=== PATIENT | male | born 1945 | race Caucasian/White ===

== ENCOUNTER 2021-04-28 07:20 | Day surgery (SDC) | payer OTHER, SELFPAY ==
[~2021-04-28] VITALS: Ht 167.6 cm; Wt 68.9 kg
[~2021-04-28 07:20] MED LIST: CEFAZOLIN SOD 2 GM in D5W 50 ML IV ONE
[2021-04-28] MEDS ORDERED: METOCLOPRAMIDE HCL 10 MG/2 ML VIAL IVP ONE (09:26)
[2021-04-28] MEDS ORDERED: fentaNYL CITRATE/PF 100 MCG/2 ML AMP IVP ONE (09:26)
[2021-04-28] MEDS ORDERED: LR 1,000 ML IV.SOLN IV ONE (09:26)
[2021-04-28] MEDS ORDERED: DEXAMETHASONE SOD PHOSPHATE 4 MG/ML VIAL IVP ONE (09:26)
[2021-04-28] MEDS ORDERED: KETOROLAC TROMETHAMINE 30 MG VIAL IVP ONE (09:26)
[2021-04-28] MEDS ORDERED: SEVOFLURANE 15 MIN GAS INH ONE (09:26)
[2021-04-28] MEDS ORDERED: MIDAZOLAM HCL 5 MG/5 ML VIAL IVP ONE (09:26)
[2021-04-28] MEDS ORDERED: BUPIVACAINE /PF 0.25% 30 ML VIAL INJ ONE (09:26)
[2021-04-28] MEDS ORDERED: PROPOFOL 200MG/ 20ML VIAL (DIPRIVAN) IV ONE (09:26)
[2021-04-28] MEDS ORDERED: ePHEDrine sulfate 50 MG/ML VIAL IVP ONE (09:26)
[2021-04-28] MEDS ORDERED: POLYMYXIN 500,000/BACIT.10,000 UNITS in NS IRR 1 L IR ONE (09:54)
[2021-04-28] MEDS ORDERED: BUPIVACAINE LIPOSOME/PF 266 MG/20 ML VIAL INFIL ONE (09:54)
[2021-04-28] MEDS ORDERED: ACETAMINOPHEN I.V. 1000 MG 100 ML IV ONE (09:54)
[2021-04-28] MEDS ORDERED: HYDROmorphone 1 MG/ML INJ. CARTRIDGE IVP PRN (10:15)
[2021-04-28] MEDS ORDERED: HYDROmorphone 2 MG/ML VIAL IVP PRN (10:15)
[2021-04-28] MEDS ORDERED: MEPERIDINE HCL/PF 25 MG/ML DISP.SYRIN IVP PRN (10:15)
[2021-04-28] MEDS ORDERED: LR 1,000 ML IV SCH (10:15)
[2021-04-28 12:29] VITALS: BP_SYST 132
== END 2021-04-28 13:40 | disposition home or self-care (01) ==
LOC: SDS 07:20 → SMU 07:23 → EDSTATUS 09:00 → SDS 13:40
PROVIDERS: ATTEND Surgery
DX: K40.90 Unilateral inguinal hernia, without obstruction or gangrene, not specified as recurrent (principal); D17.6 Benign lipomatous neoplasm of spermatic cord; I10 Essential (primary) hypertension; I25.10 Atherosclerotic heart disease of native coronary artery without angina pectoris; E78.5 Hyperlipidemia, unspecified; Z95.1 Presence of aortocoronary bypass graft; Z86.73 Personal history of transient ischemic attack (TIA), and cerebral infarction without residual deficits; Z79.82 Long term (current) use of aspirin; Z79.899 Other long term (current) drug therapy; Z20.822 Contact with and (suspected) exposure to COVID-19; Z98.890 Other specified postprocedural states
CPT/HCPCS: 49505; 88304; C1781; C9290; J0131; J0690; J7060; U0003; J1100; J1885; J2250; J2704; J2765; J3010; J3490; J7120

== ENCOUNTER 2024-03-05 05:35 | Day surgery (SDC) | payer OTHER ==
[~2024-03-05] VITALS: Ht 167.6 cm; Wt 64.6 kg
[2024-03-05] MEDS ORDERED: CLINDAMYCIN PHOS 900 MG/ D5W 50 ML PREMIX IV ONE (07:00)
[2024-03-05] MEDS ORDERED: LR 1,000 ML IV SCH ×2 (07:00→09:15)
[2024-03-05 07:57] VITALS: O2SAT 98
[2024-03-05] MEDS ORDERED: ACETAMINOPHEN I.V. 1000 MG 100 ML IV ONE (08:43)
[2024-03-05] MEDS ORDERED: HYDROmorphone 1 MG/ML INJ. CARTRIDGE IVP PRN (09:15)
[2024-03-05] MEDS ORDERED: D5/0.45 NS 1,000 ML IV SCH (09:15)
[2024-03-05] MEDS ORDERED: ONDANSETRON HCL 4 MG/2 ML VIAL IVP PRN (09:15)
[2024-03-05] MEDS ORDERED: HYDROcodone/ACETAMIN 5-325 MG TAB (NORCO/ VICODIN) PO PRN ×2 (09:15)
[2024-03-05] MEDS ORDERED: HYDROmorphone 2 MG/ML VIAL IVP PRN (09:15)
[2024-03-05] MEDS ORDERED: ePHEDrine sulfate 50 MG/ML VIAL ONE (09:24)
[2024-03-05 13:35] VITALS: BP_SYST 135; PULSE 59; RESP 16
== END 2024-03-05 11:40 | disposition home or self-care (01) ==
LOC: SMU 05:35 → SDS 05:35
PROVIDERS: ATTEND Colon & Rectal Surgery
DX: K40.30 Unilateral inguinal hernia, with obstruction, without gangrene, not specified as recurrent (principal); I10 Essential (primary) hypertension; E78.5 Hyperlipidemia, unspecified; Z95.1 Presence of aortocoronary bypass graft; I25.10 Atherosclerotic heart disease of native coronary artery without angina pectoris; Z79.82 Long term (current) use of aspirin; Z79.899 Other long term (current) drug therapy; Z95.818 Presence of other cardiac implants and grafts; Z85.46 Personal history of malignant neoplasm of prostate; Z87.438 Personal history of other diseases of male genital organs; Z86.73 Personal history of transient ischemic attack (TIA), and cerebral infarction without residual deficits; Z98.890 Other specified postprocedural states; Z80.0 Family history of malignant neoplasm of digestive organs; Z80.42 Family history of malignant neoplasm of prostate; Z83.3 Family history of diabetes mellitus
CPT/HCPCS: 87081; 49507; C1781; J3490 ×3; J1885; J2765; J2405; J3010; J7120; J0131; J2001